=== PATIENT | female | born 1965 | race Caucasian/White ===

== ENCOUNTER 2022-04-29 09:59 | Outpatient (CLI) | payer OTHER, SELFPAY ==
[2022-04-29 14:51] LABS: Cholesterol* 193 mg/dL (90-199); HDL Cholesterol* 51 mg/dL (>=50); LDL Cholesterol Calculated 118 mg/dL (<100); Triglycerides* 118 mg/dL (40-149)
== END 2022-04-29 10:00 | disposition home or self-care (01) ==
LOC: NFLDREF 10:01
PROVIDERS: PCP Family Medicine; Visit Provider Obstetrics & Gynecology
DX: Z01.419 Encounter for gynecological examination (general) (routine) without abnormal findings (principal); M06.9 Rheumatoid arthritis, unspecified; M54.50 Low back pain, unspecified; Z13.6 Encounter for screening for cardiovascular disorders
CPT/HCPCS: 80061

== ENCOUNTER 2022-05-13 09:18 | Outpatient (CLI) | payer OTHER, SELFPAY ==
--- NOTE | 2022-05-13 09:45 | CRLHL7_ITS ---
For Patients: As a result of the Century Cures Act, medical imaging exams and procedure reports are released immediately into your electronic medical record. You may view this report before your referring provider. If you have questions, please contact your health care provider. BILATERAL MAMMOGRAM WITH COMPUTER-AIDED DETECTION AND TOMOSYNTHESIS TECHNIQUE: CC and MLO views were obtained. These mammographic images have been obtained using full-field digital technique. These mammographic images were interpreted with the benefit of computer-aided detection. Breast Tomosynthesis was used in this interpretation. COMPARISON FILM: 04/30/2021, 04/25/2020, 03/20/2019. FINDINGS: There are scattered areas of fibroglandular density IMPRESSION: There is no radiographic evidence for malignancy. ASSESSMENT: BI-RADS Category 1: Negative RECOMMENDATION: Routine screening mammogram in 1 year. A lay language report of this examination will be provided to the patient. Salbador Mathis M.D. Diagnostic Radiologist [email or web address] VINH/Dictated by: Salbador Mathis MD @ 05/13/2022 11:51:00 AM (Electronically Signed)
== END 2022-05-13 09:19 | disposition home or self-care (01) ==
LOC: MAMMO 09:19
PROVIDERS: PCP Family Medicine; Visit Provider Obstetrics & Gynecology
DX: Z12.31 Encounter for screening mammogram for malignant neoplasm of breast (principal); R92.2 Inconclusive mammogram
CPT/HCPCS: 77063; 77067

== ENCOUNTER 2023-06-09 09:30 | Outpatient (CLI) | payer OTHER, SELFPAY | END 2023-06-09 09:31 | disposition home or self-care (01) | PROVIDERS: PCP Family Medicine; Referring Provider Family Medicine; Visit Provider Obstetrics & Gynecology | DX: Z01.419 Encounter for gynecological examination (general) (routine) without abnormal findings (principal) | CPT/HCPCS: 82947 ==

== ENCOUNTER 2023-06-11 09:57 | Outpatient (CLI) | payer OTHER, SELFPAY ==
--- NOTE | 2023-06-11 10:15 | CRLHL7_ITS ---
For Patients: As a result of the Century Cures Act, medical imaging exams and procedure reports are released immediately into your electronic medical record. You may view this report before your referring provider. If you have questions, please contact your health care provider. BILATERAL SCREENING MAMMOGRAM WITH COMPUTER-AIDED DETECTION AND TOMOSYNTHESIS TECHNIQUE: CC and MLO views were obtained. These mammographic images have been obtained using full-field digital technique. These mammographic images were interpreted with the benefit of computer-aided detection. Breast Tomosynthesis was used in this interpretation. COMPARISON FILM: 05/13/22, 04/30/21, 04/25/20. FINDINGS: There are scattered areas of fibroglandular density IMPRESSION: There is no radiographic evidence for malignancy. ASSESSMENT: BI-RADS Category 1: Negative RECOMMENDATION: Routine screening mammogram in 1 year. A lay language report of this examination will be provided to the patient. Salbador Mathis M.D. Diagnostic Radiologist [email or web address] VINH/Dictated by: Salbador Mathis MD @ 06/11/2023 3:24:00 PM (Electronically Signed)
== END 2023-06-11 09:58 | disposition home or self-care (01) ==
LOC: MAMMO 09:58
PROVIDERS: PCP Family Medicine; Visit Provider Obstetrics & Gynecology
DX: Z12.31 Encounter for screening mammogram for malignant neoplasm of breast (principal)
CPT/HCPCS: 77063; 77067

== ENCOUNTER 2023-10-29 11:50 | Emergency (ER) | payer OTHER, SELFPAY ==
[2023-10-29 12:01] VITALS: BP 132/88; PULSE 98; RESP 17; TEMP 37.9; O2SAT 98; BMI 24.9
--- NOTE | 2023-10-29 12:46 | CRLHL7_ITS ---
For Patients: As a result of the Century Cures Act, medical imaging exams and procedure reports are released immediately into your electronic medical record. You may view this report before your referring provider. If you have questions, please contact your health care provider. INDICATION: Left lower quadrant pain. TECHNIQUE: CT abdomen and pelvis acquired with 100 cc Omnipaque 350 IV contrast. COMPARISON: None. FINDINGS: Lower chest: Scattered atelectasis. Liver: Unremarkable. Normal in size and attenuation. No suspicious masses. Gallbladder and bile ducts: Unremarkable. No stones or inflammation. No biliary dilatation. Pancreas: Unremarkable. No mass or inflammation. Spleen: Unremarkable. Normal in size. No masses. Adrenal glands: Unremarkable. No nodules. Kidneys: Punctate bilateral nonobstructive renal stones. No suspicious masses, or hydronephrosis. GI tract: Acute uncomplicated sigmoid diverticulitis. Focal tiny developing curvilinear fluid collection in the left pelvic sidewall (series 2/image 114), not amenable for drainage. No bowel obstruction. Normal appendix. Vasculature: Abdominal aorta is normal in caliber. Mesenteric arteries are patent. Lymph nodes: No lymphadenopathy. Peritoneum/Abdominal Wall: Tiny fat containing umbilical hernia. No sign of mass or infiltration. No free air or significant free fluid. Pelvis: Mildly distended bladder circumferential wall thickening. Postsurgical changes in the bilateral adnexa. Bones: Unremarkable for age. IMPRESSION: Acute uncomplicated sigmoid diverticulitis. No drainable fluid collections. Please note that all CT scans at this facility use dose modulation, iterative reconstruction, and/or weight-based dosing when appropriate to reduce radiation dose to as low as reasonably achievable. Dictated by Terry Hammer MD @ 10/29/2023 3:15:10 PM (Electronically Signed)
--- NOTE | 2023-10-29 12:48 | ED_ITS ---
HPI - Abdominal Pain General Date Seen: 10/29/23 Chief Complaint: Abdominal Pain Stated Complaint: Lower L abdominal/back pain Time Seen by Provider: 10/29/23 12:30 Source: patient Mode of arrival: ambulatory Limitations: no limitations History of Present Illness HPI narrative: Patient is a 58-year-old female presenting to emergency department for left lower quadrant abdominal pain. She states the pain started on Wednesday. Initially pain was sharp in nature in his since become more dull. Denies ever having pain like this before. Has had some mild nausea but no vomiting. His pain is tolerable at this time which she was concerned because is not been going away. Has had normal bowel movements and been eating and drinking without issue. Denies chest pain, shortness of breath, lightheadedness, dizziness, weakness, numbness. Only previous abdominal surgery was a . Denies any dysuria, vaginal bleeding, vaginal discharge. Last colonoscopy she states was 6 years ago and was normal. She states all they found was a polyp that was noncancerous. No other concerns at this time Related Data Home Medications Medication Instructions Recorded Confirmed methotrexate sodium 2.5 mg tablet 12.5 mg PO QWEEK 04/29/22 09/05/23 folic acid 1 mg tablet 1 mg PO DAILY 06/09/23 09/05/23 Previous Rx's Medication Instructions Recorded benzonatate 100 mg capsule 100 mg PO BID-TID PRN cough #20 09/05/23 caps ciprofloxacin HCl 500 mg tablet 500 mg PO BID #10 tabs 10/29/23 metronidazole 500 mg tablet 500 mg PO Q8H #15 tabs 10/29/23 Allergies Allergy/AdvReac Type Severity Reaction Status Date / Time cefprozil [From Cefzil] Allergy Intermediate Rash Verified 09/05/23 11:01 penicillin V Allergy Mild rash, Verified 09/05/23 11:01 severe itching tazobactam Allergy Mild rash, Verified 09/05/23 11:01 severe itching Clavulanate Allergy Mild rash, Uncoded 09/05/23 11:01 severe itching Sulfa drugs Allergy Mild rash, Uncoded 09/05/23 11:01 itching Review of Systems Status of ROS Reports: 10 or more systems reviewed and unremarkable except as noted in History and below [facility] Medical History History of ?Z98.891 - History of uterine scar from previous surgery (ICD-10) Sciatica ?M54.30 - Sciatica, unspecified side (ICD-10) Rheumatoid arthritis ?M06.9 - Rheumatoid arthritis, unspecified (ICD-10) Surgical History Encounter for Essure implantation (2012) ?Z30.2 - Encounter for sterilization (ICD-10) Fourth degree perineal laceration during delivery ?O70.3 - Fourth degree perineal laceration during delivery (ICD-10) History of section (1988) ?Z98.891 - History of uterine scar from previous surgery (ICD-10) Family History Mother Breast cancer Sister Hodgkin's lymphoma Father High blood pressure Coronary artery disease Aunt Breast cancer Maternal Grandfather Rheumatoid arthritis Maternal Grandmother Breast cancer Social History Narrative: Works as a pharmacy helper Are you following a diet prescribed by a doctor: No Highest level of school completed/degree received: high school graduate Physical activity type: walking and weight lifting Smoking Status: Never smoker How often do you have a drink containing alcohol: 2-4 times a month How many standard drinks containing alcohol do you have on a typical day: 1 or 2 AUDIT-C Alcohol total score: 2 Non-prescribed substance use: denies use Are you now , , , , never or living with a partner: Social isolation score (0-1 are the most socially isolated patients): 1 Little interest or pleasure in doing things: not at all Feeling down, depressed, or hopeless: not at all Do you think of yourself as: straight/heterosexual Gender Identity: female Are you currently sexually active: Yes In the past 12 months, how many sex partners have you had: one Are you using contraception or practicing any form of control: Yes (Permanent sterilization) Exam Narrative: Exam Narrative: Const: Well-nourished, Well-developed, in mild distress Eyes: PERRL, no conjunctival injection, and symmetrical lids HENT: Atraumatic external nose and ears. Moist mucous membranes. Neck: Symmetric, trachea midline, No thyromegaly. CVS: RRR, No murmurs or gallops. Peripheral pulses 2+ and equal in all ex tremities RESP: Unlabored respiratory effort. Clear to auscultation bilaterally. GI: Mild left lower quadrant tenderness, Nondistended, No rebound or guarding. MSK:Extremities w/o deformity, Normal Active ROM Skin: Warm, Dry. No rashes or lesions. Neuro: Normal Muscle tone, No focal neurological deficits. Psych: Awake, Alert, & Oriented x3. Appropriate mood and affect. Const: Vital Signs, click to edit/add: Vital Signs - 24 hr 10/29/23 12:01 Temperature 100.3 F H Pulse Rate [Pulse Oximeter] 98 Respiratory Rate 17 Blood Pressure [Ri ght Upper Arm] 132/88 Pulse Oximetry 98 Oxygen Delivery Me thod Room Air Course Vital Signs Vital signs: Initial Vital Signs Temperature 100.3 F H 10/29/23 12:01 Temperature Source Temporal Artery Scan 10/29/23 12:01 Pulse Rate 98 10/29/23 12:01 Respiratory Rate 17 10/29/23 12:01 Blood Pressure 132/88 10/29/23 12:01 Blood Pressure Mean 102 10/29/23 12:01 Pulse Oximetry 98 10/29/23 12:01 Oxygen Delivery Method Room Air 10/29/23 12:01 Vital Signs Temperature 100.3 F H 10/29/23 12:01 Pulse Rate 98 10/29/23 12:01 Respiratory Rate 17 10/29/23 12:01 Blood Pressure 132/88 10/29/23 12:01 Pulse Oximetry 98 10/29/23 12:01 Oxygen Delivery Method Room Air 10/29/23 12:01 Temperature 100.3 F H 10/29/23 12:01 Pulse Rate 98 10/29/23 12:01 Respiratory Rate 17 10/29/23 12:01 Blood Pressure 132/88 10/29/23 12:01 Pulse Oximetry 98 10/29/23 12:01 Oxygen Delivery Method Room Air 10/29/23 12:01 MDM - Abdominal Pain MDM Narrative Medical decision making narrative: Patient is a 58 year female presenting for lower abdominal pain. Mostly left lower quadrant. Pain was initially sharp but has been getting better. Symptoms are not going away as she was concerned and came to the emergency department. Denies any urinary symptoms. Last colonoscopy was 6 years ago and she said was normal other than a noncancerous polyp. Right now differential includes colitis, diverticulitis, nephrolithiasis. Seems unlikely to be in SBO as she is having otherwise normal bowel movements. Has had previous abdominal surgery so this is is in the differential. CT scan was ordered. Also ordered CBC, urinalysis, CMP, COVID/flu/RSV. Lab workup returned showing no concerning abnormalities. There is a small amount of blood in her stool but no signs of a true UTI. CT scan returned showing acute uncomplicated diverticulitis. This is consistent with a symptoms and will be treated. Ciprofloxacin and Flagyl was chosen due to her penicillin allergy. She is otherwise doing well we discharged home. Lab Data Labs: Lab Results 10/29/23 10/29/23 Range/Units 11:18 13:25 WBC 6.12 (4.50-11.00) K/uL RBC 4.34 (4.00-5.20) m/uL Hgb 14.0 (12.0-16.0) gm/dL Hct 40.8 (33.0-51.0) % MCV 94 (80-100) fL MCH 32 (26-34) pg MCHC 34 (32-36) gm/dL RDW Coeff of Yari 12.6 (11.5-15.5) % Plt Count 229 (140-440) K/uL Neut % (Auto) 85.9 H (42.0-72.0) % Lymph % (Auto) 8.8 L (20-44) % [place] % (Auto) 4.1 (0.0-11.0) % Eos % (Auto) 0.8 (0.0-7.0) % Baso % (Auto) 0.2 (0.0-3.0) % Neut # (Auto) 5.30 (1.7-7.0) K/uL Lymph # (Auto) 0.50 L (0.90-2.90) K/uL [place] # (Auto) 0.30 (0.00-0.90) K/UL Eos # (Auto) 0.05 (0.00-0.50) K/uL Baso # (Auto) 0.01 (0.00-0.30) K/uL Abs Immat Gran (auto) 0.01 (0.00-0.30) K/uL Imm/Tot Granulo (auto) 0.2 % Sodium 139 (135-149) mmol/L Potassium 3.5 L (3.6-5.1) mmol/L Chloride 105 (96-114) mmol/L Carbon Dioxide 26 (20-32) mmol/L Anion Gap 8 (7-15) mEq/L BUN 17 (7-30) mg/dL Creatinine 0.6 (0.5-1.5) mg/dL Estimated Creat Clear 90.41 Estimated GFR 105 ml/min Glucose 106 (60-115) mg/dL Calcium 8.7 (8.4-10.6) mg/dL Total Bilirubin 0.9 (0.1-1.5) mg/dL AST 25 (12-35) U/L ALT 23 (4-35) U/L Alkaline Phosphatase 76 (40-150) U/L Total Protein 7.2 (6.0-8.3) g/dL Albumin 4.2 (3.3-5.0) g/dL Urine Color Yellow (Yellow) Urine Appearance Clear (Clear) Urine pH 8.0 (5.0-8.5) Ur Specific [place] 1.020 (1.000-1.030) Urine Protein 1+ A (Negative) Urine Glucose (UA) Negative (Negative) Urine Ketones Negative (Negative) Urine Blood Trace-intact A (Negative) Urine Nitrite Negative (Negative) Urine Bilirubin Negative (Negative) Urine Urobilinogen 1.0 (0.2-1.0) Ur Leukocyte Esterase Trace A (Negative) Urine RBC 5-10 A (0-2) Urine WBC 2-5 (0-5) Ur Squamous Epith Cells Few (None-Few) Urine Bacteria None (None) SARS-CoV-2 (PCR) Negative SARS-CoV-2 (Negative) Influenza Type A (PCR) Negative PCR FLU A (Negative) Influenza Type B (PCR) Negative PCR FLU B (Negative) Imaging Data CT abdomen and pelvis: Radiologist's impression: Acute uncomplicated sigmoid diverticulitis. No drainable fluid collections. Please note that all CT scans at this facility use dose modulation, iterative reconstruction, and/or weight-based dosing when appropriate to reduce radiation dose to as low as reasonably achievable. Dictated by Terry Hammer MD @ 10/29/2023 3:15:10 PM Discharge Plan Discharge Clinical Impression: Diverticulitis Patient Disposition: Home, Self-Care Condition: Stable Instructions: Diverticulitis (ED) Additional Instructions: Your symptoms are from diverticulitis. They should get better with the antibiotics. Return to emergency department for new worsening symptoms. Prescriptions: New metronidazole 500 mg tablet 500 mg PO Q8H Qty: 15 0RF ciprofloxacin HCl 500 mg tablet 500 mg PO BID Qty: 10 0RF No Action benzonatate 100 mg capsule 100 mg PO BID-TID PRN (Reason: cough) Qty: 20 0RF methotrexate sodium 2.5 mg tablet 12.5 mg PO QWEEK folic acid 1 mg tablet 1 mg PO DAILY Follow Up/Referrals: Cj Cunha MD [Primary Care Provider] - Stand Alone Forms: [employer] (PRIMP) Info Instructions
[2023-10-29 13:24] LABS: Appearance Urine Clear (Clear); Bilirubin Urine Negative (Negative); Blood Urine Trace-intact (Negative); Color Urine Yellow (Yellow); Glucose Urine Negative (Negative); Ketones Urine Negative (Negative); Leukocyte Esterase Urine Trace (Negative); Nitrite Urine Negative (Negative); Protein Urine 1+ (Negative)
[2023-10-29 13:33] LABS: Squamous Epithelial Cell Urine Few (None-Few)
[2023-10-29 13:36] LABS: Basophils Absolute Auto 0.01 K/uL (0.00-0.30); Basophils Percent Auto 0.2 % (0.0-3.0); Eosinophils Absolute Auto 0.05 K/uL (0.00-0.50); Eosinophils Percent Auto 0.8 % (0.0-7.0); Hematocrit 40.8 % (33.0-51.0); Immature Granulocytes Abs Auto 0.01 K/uL (0.00-0.30); Immature Granulocytes Pct Auto 0.2 %; Lymphocytes Percent Auto 8.8 % (20-44); Mean Corpuscular HGB Conc 34 gm/dL (32-36); Mean Corpuscular Hemoglobin 32 pg (26-34); Mean Corpuscular Volume 94 fL (80-100); Monocytes Percent Auto 4.1 % (0.0-11.0); Neutrophils Percent Auto 85.9 % (42.0-72.0); Platelet Count* 229 K/uL (140-440); RDW Coefficient of Variation % 12.6 % (11.5-15.5); Red Blood Count 4.34 m/uL (4.00-5.20); White Blood Count* 6.12 K/uL (4.50-11.00)
[2023-10-29 13:41] LABS: Slide Review Reflex No
[2023-10-29 13:53] LABS: Albumin* 4.2 g/dL (3.3-5.0); Chloride* 105 mmol/L (96-114); Potassium* 3.5 mmol/L (3.6-5.1); Sodium* 139 mmol/L (135-149)
[2023-10-29 13:55] LABS: Anion Gap 8 mEq/L (7-15); Aspartate Amino Transferase* 25 U/L (12-35); Bilirubin Total* 0.9 mg/dL (0.1-1.5); Carbon Dioxide* 26 mmol/L (20-32); Creatinine* 0.6 mg/dL (0.5-1.5); Est. Creatinine Clearance* 90.41; Estimated Glomerular Filt Rate 105 ml/min; Total Protein* 7.2 g/dL (6.0-8.3)
[2023-10-29 13:56] LABS: Alanine Aminotransferase* 23 U/L (4-35); Alkaline Phosphatase* 76 U/L (40-150); Blood Urea Nitrogen* 17 mg/dL (7-30); Calcium* 8.7 mg/dL (8.4-10.6); Glucose* 106 mg/dL (60-115)
[2023-10-29 14:25] LABS: PCR FLU A Negative PCR FLU A (Negative); PCR FLU B Negative PCR FLU B (Negative)
[2023-10-29 14:26] LABS: SARS PCR* Negative SARS-CoV-2 (Negative)
== END 2023-10-29 15:33 | disposition home or self-care (01) ==
PROVIDERS: Emergency Provider Student in an Organized Health Care Education/Training Program; PCP Family Medicine
DX: K57.92 Diverticulitis of intestine, part unspecified, without perforation or abscess without bleeding (principal)
CPT/HCPCS: 36415; 74177; 80053; 81001; 85025; 87631; 99283; 99284; Q9967

== ENCOUNTER 2023-12-19 13:15 | Outpatient (CLI) | payer OTHER, SELFPAY | END 2023-12-19 13:16 | disposition home or self-care (01) | LOC: NFLDUCREF 13:17 | PROVIDERS: PCP Family Medicine; Visit Provider Nurse Practitioner | DX: R10.9 Unspecified abdominal pain (principal) | CPT/HCPCS: 87086 ==

== ENCOUNTER 2024-06-16 08:14 | Outpatient (CLI) | payer OTHER, SELFPAY ==
--- NOTE | 2024-06-16 08:15 | CRLHL7_ITS ---
For Patients: As a result of the Century Cures Act, medical imaging exams and procedure reports are released immediately into your electronic medical record. You may view this report before your referring provider. If you have questions, please contact your health care provider. BILATERAL SCREENING MAMMOGRAM WITH COMPUTER-AIDED DETECTION AND TOMOSYNTHESIS TECHNIQUE: CC and MLO views were obtained. These mammographic images have been obtained using full-field digital technique. These mammographic images were interpreted with the benefit of computer-aided detection. Breast Tomosynthesis was used in this interpretation. COMPARISON FILM: 06/11/23, 05/13/22, 04/30/21. FINDINGS: There are scattered areas of fibroglandular density. IMPRESSION: There is no radiographic evidence for malignancy. ASSESSMENT: BI-RADS Category 1: Negative RECOMMENDATION: Routine screening mammogram in 1 year. A lay language report of this examination will be provided to the patient. Salbador Mathis M.D. Diagnostic Radiologist [email or web address] SP/Dictated by: Salbador Mathis MD @ 06/16/2024 9:59:00 AM (Electronically Signed)
== END 2024-06-16 08:15 | disposition home or self-care (01) ==
PROVIDERS: PCP Family Medicine; Visit Provider Obstetrics & Gynecology
DX: Z12.31 Encounter for screening mammogram for malignant neoplasm of breast (principal)
CPT/HCPCS: 77063; 77067

== ENCOUNTER 2025-06-27 08:03 | Outpatient (CLI) | payer OTHER, SELFPAY ==
--- NOTE | 2025-06-27 08:15 | CRLHL7_ITS ---
For Patients: As a result of the Century Cures Act, medical imaging exams and procedure reports are released immediately into your electronic medical record. You may view this report before your referring provider. If you have questions, please contact your health care provider. INDICATION: BILATERAL SCREENING MAMMOGRAM, ASYMPOTMATIC 60 Y/O FEMALE COMPARISON: 06/16/2024, 06/11/2023, 05/13/2022 TECHNIQUE: Digital mammogram in CC and MLO projections including computer-aided detection (CAD) and tomosynthesis. BREAST COMPOSITION: There are scattered areas of fibroglandular density. FINDINGS: No suspicious findings. ASSESSMENT: BI-RADS 1 Negative RECOMMENDATION: Annual screening mammogram. A lay language report of this examination will be provided to the patient. Dictated by: Salbador Mathis MD @ 06/27/2025 09:33:05 (Electronically Signed)
== END 2025-06-27 08:04 | disposition home or self-care (01) ==
LOC: MAMMO 08:04
PROVIDERS: PCP Family Medicine; Visit Provider Obstetrics & Gynecology
DX: Z12.31 Encounter for screening mammogram for malignant neoplasm of breast (principal)
CPT/HCPCS: 77063; 77067